=== PATIENT | male | born 1990 | race Caucasian/White ===

== ENCOUNTER → 2022-02-23 07:56 | Outpatient (BNVA) | payer MEDICAID, SELFPAY | PROVIDERS: Family Provider Family Medicine; Referring Provider Psychiatry & Neurology Neurology; Visit Provider Specialist | DX: G40.109 Localization-related (focal) (partial) symptomatic epilepsy and epileptic syndromes with simple partial seizures, not intractable, without status epilepticus (principal) | CPT/HCPCS: 95812; 95816 ==

== ENCOUNTER 2022-07-24 11:10 | Emergency (ER) | payer MEDICAID, SELFPAY ==
[2022-07-24 11:11] VITALS: BP 135/93; PULSE 88; RESP 22; TEMP 36.9; O2SAT 93; BMI 27.1
--- NOTE | 2022-07-24 11:14 | ED_ITS ---
HPI - Seizure General: Chief Complaint: Seizure Stated Complaint: SEIZURE Time Seen by Provider: 07/24/22 11:10 History of Present Illness: HPI Narrative: Presents with a seizure. Patient is alert and oriented at this time. Patient does not remember anything about his seizure. Patient is on seizure medicine for history of seizures. Patient states he takes his medicine as directed. Patient states this was his normal seizure were nothing different than any other seizure. Patient said his mother was there with him during this time. Patient has seen Dr. Arteaga neurology for this in the past. complaint: seizure Duration of episode: 3 Witnessed: Yes - by Other Seizure History: Yes Place: in a store Possible Precipitating Event: none Associated symptoms: Reports no associated symptoms; Deny chest pain, chills or fever(s) Treatments prior to arrival: none Review of Systems General: Reports: 10 or more systems reviewed and unremarkable except in HPI and below Const: Denies: fever(s) or chills Eyes: Denies: change in vision ENMT: Denies: throat pain Card: Denies: chest pain or edema Resp: Denies: dyspnea, productive cough or non-productive cough GI: Denies: abdominal pain, nausea or vomiting : Denies: flank pain or difficulty urinating Musc: Denies: neck pain or back pain Skin/Breast: Denies: rash or pruritus Neuro: Denies: headache(s), numbness in extremities or weakness in extremities Psych: Denies: anxiety or depression Physical Exam Const: COMMON NORMALS: no acute distress, average body habitus, patient oriented x3, no limitations, healthy appearing, alert and well nourished HENMT: COMMON NORMALS: normocephalic, atraumatic, hearing grossly normal bilaterally, external ears normal, Normal external nose present and moist oral mucous membranes HEAD & SCALP: normocephalic and atraumatic NOSE: Normal external nose present EXTERNAL EAR: Yes external ears normal Eye: COMMON NORMALS: Equal, round and reactive pupils present, EOMs intact bilaterally, conjunctivae normal and no scleral icterus CONJUNCTIVA: Yes conjunctivae normal PUPIL: Yes Equal, round and reactive pupils present Neck/C-Spine: COMMON NORMALS: full ROM, no lymphadenopathy, supple, no meningeal signs, no JVD and Thyroid normal THYROID: Thyroid normal Lymph: LYMPHATIC: no lymphadenopathy noted Chest: COMMONS NORMALS: normal inspection of the chest and normal palpation of entire chest wall Resp: COMMON NORMALS: normal respiratory effort, No retractions, No use of accessory muscles and clear to auscultation bilaterally AUSCULTATION: clear to auscultation bilaterally Cardio: COMMON NORMALS: no JVD, regular rate, regular rhythm, S1 normal heart sound present and S2 normal heart sound present RATE: regular rate RHYTHM: regular rhythm HEART SOUNDS: S1 normal heart sound present and S2 normal heart sound present GI: COMMON NORMALS: Normal to inspection, nondistended, normoactive bowel sounds present, Soft to palpation, non-tender, No hepatosplenomegaly present and no masses PALPATION: Yes Soft to palpation and Yes No hepatosplenomegaly present : COMMON NORMALS: Yes no CVA tenderness BLADDER/KIDNEY EXAM: Yes no CVA tenderness Back/Pelvis: COMMON NORMALS: no CVA tenderness Neuro: COMMON NORMALS: patient oriented x3, CN's II-XII intact bilaterally, moves all extremities, no focal motor deficits and no sensory deficits noted SENSORIUM/ORIENTATION: Yes alert MENINGEAL SIGNS: Yes no meningeal signs Psych: COMMON NORMALS: mental status grossly normal, Normal thought process present, cooperative, normal affect and speech normal SPEECH: Yes normal speech THOUGHT PROCESS: Normal thought process present Course Vital Signs: Vital signs: Vital Signs Temperature 98.5 F 07/24/22 11:11 Pulse Rate 88 07/24/22 11:11 Respiratory Rate 22 H 07/24/22 11:11 Blood Pressure 135/93 07/24/22 11:11 Pulse Oximetry 93 07/24/22 11:11 Oxygen Delivery Me thod Room Air 07/24/22 11:11 MDM - Seizure MDM Narrative Medical decision making narrative: Patient presents to the ER with complaints of seizure. Patient does have a history of having seizures in the past and is on medicine. Patient admits to taking his medicine. Patient has seen Dr. Arteaga in the past. Lab work was obtained which was essentially benign other than mildly elevated prolactin l evel. Patient will be discharged home and instructed to follow back up with Dr. Arteaga for possible medicine changes. Differential Diagnosis Seizure Differential Diagnosis: Likely generalized seizure and epileptic seizure; Unlikely intractable seizure disorder, new onset seizure or status epilepticus Medical Records Attestation: I reviewed the patient's medical records. Lab Data 07/24/22 11:29 07/24/22 11:29 Labs: Laboratory Results WBC 7.9 10^3/uL (4.0-10.0) 07/24/22 11:29 RBC 5.01 10^6/uL (4.1-5.3) 07/24/22 11:29 Hgb 15.4 g/dL (11.7-16.6) 07/24/22 11:29 Hct 44.6 % (42.0-52.0) 07/24/22 11:29 MCV 89.0 fl (80-94) 07/24/22 11:29 MCH 30.7 pg (28.0-34.0) 07/24/22 11:29 MCHC 34.5 g/dL (30.0-36.0) 07/24/22 11:29 RDW 12.6 % (12.1-15.1) 07/24/22 11:29 Plt Count 250 10^3/cmm (130-400) 07/24/22 11:29 MPV 9.5 fL (7.4-10.4) 07/24/22 11:29 Neut % (Auto) 79.3 % 07/24/22 11:29 Lymph % (Auto) 12.0 % 07/24/22 11:29 [place] % (Auto) 4.5 % 07/24/22 11:29 Eos % (Auto) 2.8 % 07/24/22 11:29 Baso % (Auto) 0.6 % 07/24/22 11:29 Neut # (Auto) 6.28 10^3/uL (1.8-7.7) 07/24/22 11:29 Lymph # (Auto) 1.0 10^3/uL (0.8-4.8) 07/24/22 11:29 [place] # (Auto) 0.4 10^3/uL (0.2-0.9) 07/24/22 11:29 Eos # (Auto) 0.2 10^3/uL (0.0-0.8) 07/24/22 11:29 Baso # (Auto) 0.1 10^3/uL (0.0-0.1) 07/24/22 11:29 Nucleated RBC % (auto) 0 % 07/24/22 11:29 Nucleated RBCs # 0.0 /100WBC 07/24/22 11:29 Sodium 136 mmol/L (136-145) 07/24/22 11:29 Potassium 3.6 mmol/L (3.5-5.1) 07/24/22 11:29 Chloride 100 mmol/L (98-107) 07/24/22 11:29 Carbon Dioxide 24 mmol/L (22-29) 07/24/22 11:29 Anion Gap 15.6 (5-19) 07/24/22 11:29 BUN 6 mg/dL (6-20) 07/24/22 11:29 Creatinine 1.1 mg/dL (0.7-1.2) 07/24/22 11:29 GFR Calculation 77.1 mL/min (90-130) L 07/24/22 11:29 Glucose 118 mg/dL (65-115) H 07/24/22 11:29 Calculated Osmolality 281 mOsm/kg (285-295) L 07/24/22 11:29 Calcium 9.3 mg/dL (8.5-10.5) 07/24/22 11:29 Total Bilirubin 0.3 mg/dL (0.15-1.2) 07/24/22 11:29 AST 21 U/L (0-40) 07/24/22 11:29 ALT 22 U/L (0-41) 07/24/22 11:29 Alkaline Phosphatase 88 U/L (40-130) 07/24/22 11:29 Total Protein 7.3 g/dL (6.6-8.7) 07/24/22 11:29 Albumin 4.3 g/dL (3.5-5.2) 07/24/22 11:29 Globulin 3.0 g/dL (1.3-4.6) 07/24/22 11:29 Prolactin 24.99 ng/mL (4.0-15.2) H 07/24/22 11:29 Urine Color Light yellow (Yellow) 07/24/22 12:32 Urine Appearance Clear (CLEAR) 07/24/22 12:32 Urine pH 8 (5-7) H 07/24/22 12:32 Ur Specific [place] 1.020 (1.005-1.030) 07/24/22 12:32 Urine Protein Neg (Negative) 07/24/22 12:32 Urine Glucose (UA) Norm (Normal) 07/24/22 12:32 Urine Ketones Negative (Negative) 07/24/22 12:32 Urine Blood Neg (Negative) 07/24/22 12:32 Urine Nitrate Negative (Negative) 07/24/22 12:32 Urine Bilirubin Neg (Negative) 07/24/22 12:32 Prot Sulfosalicylic Acd Negative (Negative) 07/24/22 12:32 Urine Urobilinogen Norm mg/dL (Negative) 07/24/22 12:32 Ur Leukocyte Esterase Negative (Negative) 07/24/22 12:32 Urine Opiates Screen Negative ng/mL (Negative) 07/24/22 12:32 Ur Barbiturates Screen Negative ng/mL (Negative) 07/24/22 12:32 Ur Phencyclidine Scrn Negative ng/mL (Negative) 07/24/22 12:32 Ur Amphetamines Screen Negative ng/mL (Negative) 07/24/22 12:32 U Benzodiazepines Scrn Negative ng/mL (Negative) 07/24/22 12:32 Urine Cocaine Screen Negative ng/mL (Negative) 07/24/22 12:32 U Marijuana (THC) Screen Negative ng/mL (Negative) 07/24/22 12:32 EKG Data EKG 1: Attestation: I personally reviewed and interpreted this EKG as follows: EKG interpretation date: 07/24/22 EKG interpretation time: 11:31 Prior EKG tracings: not available for review Interpretation: EKG showed normal sinus rhythm with ventricular rate of 86 bpm, WI interval 147, QRS duration of 96, QTc of 408, no ST-T wave changes Discharge Plan Discharge Patient Disposition: Home Clinical Impression: Epileptic seizure Qualifiers: Epilepsy type: unspecified Intractability: not intractable Status epilepticus: without status epilepticus Qualified Code(s): G40.909 - Epilepsy, unspecified, not intractable, without status epilepticus Condition: Stable Prescriptions: No Action citalopram 20 mg tablet 20 mg PO DAILY lamotrigine 100 mg tablet 300 mg PO BID topiramate 50 mg tablet 175 mg PO BID Discharge Orders: Discharge ED (Routine); Ordered 07/24/22 Ordered By: Thom Robles Patient Instructions: Epilepsy (ED) Activity Restrictions/Additional Instructions: Call Dr. Arteaga's office and schedule an appointment to follow-up with her in the next 1 to 2 weeks. Coding Level of Care Code ED Furn[employer] for Hilario Jiménez
--- NOTE | 2022-07-24 11:19 | ECG_ITS ---
[facility] Test Date: 2022-07-24 Pat Name: Caesar Hyatt Department: Room: Gender: Male Stock Layer: : 1990 Requested By: Thom Robles Order Number: [id number] Romi MD: Imelda Ledesma M.D. Measurements Intervals [place] Rate: 86 P: 34 [place]: 147 QRS: 21 QRSD: 96 T: 19 QT: 365 QTc: 438 Interpretive Statements SINUS RHYTHM Compared to ECG 09/27/2017 12:43:16 No significant changes Electronically Signed On 07-25-2022 7:03:00 CDT by Imelda Ledesma M.D. [email or web address] [email or web address] [email or web address] community hospitaleParachuteselect medical specialty hospital [id number]
[2022-07-24] MEDS: ondansetron 2 mg/ML SDV 2 mL 4 MG IVP (11:24)
[2022-07-24] MEDS: sodium chloride 0.9% 1,000 ML 999 ML IV (11:25)
[2022-07-24 11:36] LABS: Basophils # 0.1 10^3/uL (0.0-0.1); Basophils % 0.6 %; Eosinophils # 0.2 10^3/uL (0.0-0.8); Eosinophils % 2.8 %; Hematocrit 44.6 % (42.0-52.0); Hemoglobin 15.4 g/dL (11.7-16.6); Mean Corpuscular HGB Conc 34.5 g/dL (30.0-36.0); Mean Corpuscular Hemoglobin 30.7 pg (28.0-34.0); Mean Platelet Volume 9.5 fL (7.4-10.4); Monocytes # 0.4 10^3/uL (0.2-0.9); Monocytes % 4.5 %; Neutrophils # 6.28 10^3/uL (1.8-7.7); Neutrophils % 79.3 %; Nucleated Red Blood Cells % 0 %; Platelet Count 250 10^3/cmm (130-400); Red Blood Count 5.01 10^6/uL (4.1-5.3); Red Cell Distribution Width 12.6 % (12.1-15.1); White Blood Count 7.9 10^3/uL (4.0-10.0)
[2022-07-24 12:50] LABS: Alanine Aminotransferase 22 U/L (0-41); Albumin Level 4.3 g/dL (3.5-5.2); Alkaline Phosphatase 88 U/L (40-130); Anion Gap 15.6 (5-19); Aspartate Amino Transferase 21 U/L (0-40); Blood Urea Nitrogen 6 mg/dL (6-20); Calcium 9.3 mg/dL (8.5-10.5); Carbon Dioxide 24 mmol/L (22-29); Chloride 100 mmol/L (98-107); Glomerular Filtration Rate 77.1 mL/min (90-130); Glucose 118 mg/dL (65-115); Osmolality Calculated 281 mOsm/kg (285-295); Potassium 3.6 mmol/L (3.5-5.1); Sodium 136 mmol/L (136-145); Total Bilirubin 0.3 mg/dL (0.15-1.2); Total Protein 7.3 g/dL (6.6-8.7)
[2022-07-24 13:21] LABS: Prolactin 24.99 ng/mL (4.0-15.2)
[2022-07-24 13:27] VITALS: BP 123/85; PULSE 66; RESP 15; O2SAT 95
[2022-07-24 13:30] VITALS: BP 123/85; PULSE 79; RESP 18; O2SAT 95
[2022-07-24 13:39] LABS: Add Urine Microscopic? NO; Charge for UA Resulting for Rev
[2022-07-24 14:00] VITALS: BP 125/69; PULSE 80; RESP 19; O2SAT 93
[2022-07-24 14:15] LABS: Amphetamines Screen Urine Negative (Negative); Barbiturates Screen Urine Negative (Negative); Benzodiazepines Screen Urine Negative (Negative); Cocaine Screen Urine Negative (Negative); Opiate Screen Urine Negative (Negative); PCP Screen Urine Negative (Negative); THC Screen Urine Negative (Negative)
[2022-07-24 14:27] LABS: Blood Urine Neg (Negative); Glucose Urine UA Norm (Normal); Ketones Urine Negative (Negative); Nitrate Urine Negative (Negative); Protein Urine Neg (Negative); Urine Appearance Clear (CLEAR); Urine Color Light yellow (Yellow); pH Urine 8 (5-7)
[2022-07-24 14:28] LABS: Bilirubin Urine Neg (Negative); Leukocyte Esterase Urine Negative (Negative); Sulfosalicylic Acid Urine Negative (Negative); Urobilinogen Urine Norm (Negative)
[2022-07-24 14:30] VITALS: BP 125/75; PULSE 76; RESP 16; O2SAT 98
== END 2022-07-24 15:08 | disposition home or self-care (01) ==
PROVIDERS: Emergency Provider Emergency Medicine; PCP Psychiatry & Neurology Neurology
DX: G40.909 Epilepsy, unspecified, not intractable, without status epilepticus (principal)
CPT/HCPCS: 80053; 80306; 81003; 84146; 85025; 93005; 96374; 99284; J2405; J7030

== ENCOUNTER 2024-11-11 18:57 | Emergency (ER) | payer MEDICAID, SELFPAY ==
--- NOTE | 2024-11-11 19:01 | CTR_ITS ---
PROCEDURE INFORMATION: Exam: CT Head Without Contrast Exam date and time: 11/11/2024 7:15 PM Age: 34 years old Clinical indication: Other: Seizure TECHNIQUE: Imaging protocol: Computed tomography of the head without contrast. Radiation optimization: All CT scans at this facility use at least one of these dose optimization techniques: automated exposure control; mA and/or kV adjustment per patient size (includes targeted exams where dose is matched to clinical indication); or iterative reconstruction. COMPARISON: No relevant prior studies available. RADIATION DOSE METRICS: Total DLP (mGy-cm): 1124.68 FINDINGS: Brain: Prominent abnormal/remote encephalomalacic changes are noted to involve left frontal lobe/cortex. Encephalomalacia changes also noted to involve the insular cortex lentiform nucleus. Compensatory enlargement of the left lateral ventricle is also noted. Beam hardening artifact obscures resolution through the posterior fossa structures. No hemorrhage. No mass effect. Cerebral ventricles: See above. Ventricular caliber and configuration is otherwise relatively unremarkable proportion degree of widening sulci, sylvian fissures and basilar cisterns. Paranasal sinuses: Visualized sinuses are unremarkable. No fluid levels. Mastoid air cells: Visualized mastoid air cells are well aerated. Bones: Unremarkable. No acute fracture. Soft tissues: Incidentally noted appears to be ceruminous plugging of the right external auditory canal. CT/CT head wo con* [id number] IMPRESSION: 1. No acute intracranial head CT findings identified. 2. Remote/prominent left cerebral encephalomalacia warranting further historical clinical correlation. 3. Ceruminous plugging of the right external auditory canal/EAC.
--- NOTE | 2024-11-11 19:01 | W.ED.SEIZURE ---
HPI - Seizure General: Chief Complaint: Seizure Stated Complaint: Seizure Time Seen by Provider: 11/11/24 18:59 Source: patient and EMS Mode of arrival: EMS Limitations: no limitations History of Present Illness: HPI Narrative: 34-year-old male has a history of seizures states he had a seizure just prior to arrival and did hit his head when he seized patient is now awake and alert unsure how long the seizure lasted he states he has been taking his seizure meds he denies any recent illness denies headache. Seizure History: Yes Associated symptoms: Deny chest pain, chills or fever(s) Related Data Home Medications ?Medication ?Instructions ?Recorded ?Confirmed citalopram 20 mg tablet 20 mg PO DAILY 07/24/22 07/24/22 lamotrigine 100 mg tablet 300 mg PO BID 07/24/22 07/24/22 topiramate 50 mg tablet 175 mg PO BID 07/24/22 07/24/22 Allergies Allergy/AdvReac Type Severity Reaction Status Date / Time No Known Allergies Allergy Verified 07/24/22 11:20 Review of Systems Const: Denies: fever(s), chills, body aches or change in appetite Eyes: Denies: blurry vision or eye discomfort ENMT: Denies: throat pain or dental pain Card: Denies: chest pain Resp: Denies: dyspnea GI: Denies: abdominal pain, nausea, vomiting or diarrhea Musc: Denies: neck pain or back pain Skin/Breast: Denies: rash Neuro: Reports: seizure-like activity; Denies: headache(s) Physical Exam Const: COMMON NORMALS: no acute distress, patient oriented x3 and healthy appearing HENMT: COMMON NORMALS: normocephalic and atraumatic HEAD & SCALP: normocephalic and atraumatic OTHER: small abrasion to scalp Neck/C-Spine: COMMON NORMALS: full ROM and supple Chest: COMMONS NORMALS: normal inspection of the chest Resp: COMMON NORMALS: normal respiratory effort, No retractions, No use of accessory muscles and clear to auscultation bilaterally AUSCULTATION: clear to auscultation bilaterally Cardio: COMMON NORMALS: regular rate, regular rhythm and No murmurs present (Cardio) RATE: regular rate RHYTHM: regular rhythm GI: COMMON NORMALS: Normal to inspection, nondistended, normoactive bowel sounds present, Soft to palpation, non-tender and no masses PALPATION: Yes Soft to palpation Extremity: COMMON NORMALS: normal to inspection and full ROM Neuro: COMMON NORMALS: patient oriented x3, moves all extremities and no focal motor deficits Psych: COMMON NORMALS: mental status grossly normal, Normal thought process present and cooperative THOUGHT PROCESS: Normal thought process present Skin: COMMON NORMALS: no rashes or lesions noted and no wounds GENERAL SKIN EXAM: no rashes or lesions noted Course Vital Signs: Vital signs: Vital Signs Temperature 99.1 F 11/11/24 19:09 Pulse Rate 112 H 11/11/24 19:09 Respiratory Rate 20 H 11/11/24 19:09 Blood Pressure 134/79 11/11/24 19:09 Pulse Oximetry 91 11/11/24 19:09 Oxygen Delivery Me thod Room Air 11/11/24 19:09 MDM - Seizure MDM Narrative Medical decision making narrative: Patient presents after seizure he does have a history of seizure disorder head CT showed no acute findings electrolytes were normal did have an anion gap likely due to his seizure. He has been well-appearing here seizure-free he is to follow-up with his neurologist continue to take his meds return if worsening. Lab Data 11/11/24 19:00 Labs: Radiology Impressions Head CT 11/11/24 19:01 IMPRESSION: 1. No acute intracranial head CT findings identified. 2. Remote/prominent left cerebral encephalomalacia warranting further historical clinical correlation. 3. Ceruminous plugging of the right external auditory canal/EAC. Laboratory Results Sodium 144 mmol/L (136-145) 11/11/24 19:00 Potassium 3.3 mmol/L (3.5-5.1) L 11/11/24 19:00 Chloride 101 mmol/L (98-107) 11/11/24 19:00 Carbon Dioxide 11 mmol/L (22-29) L 11/11/24 19:00 Anion Gap 35.3 (5-19) H 11/11/24 19:00 BUN 9 mg/dL (6-20) 11/11/24 19:00 Creatinine 1.2 mg/dL (0.7-1.2) 11/11/24 19:00 GFR Calculation 68.9 mL/min (90-130) L 11/11/24 19:00 Glucose 164 mg/dL (65-115) H 11/11/24 19:00 Calculated Osmolality 300 mOsm/kg (285-295) H 11/11/24 19:00 Calcium 9.7 mg/dL (8.5-10.5) 11/11/24 19:00 Total Bilirubin 0.6 mg/dL (0.15-1.2) 11/11/24 19:00 AST 24 U/L (0-40) 11/11/24 19:00 ALT 26 U/L (0-41) 11/11/24 19:00 Alkaline Phosphatase 113 U/L (40-130) 11/11/24 19:00 Total Protein 8.7 g/dL (6.6-8.7) 11/11/24 19:00 Albumin 5.2 g/dL (3.5-5.2) 11/11/24 19:00 Globulin 3.5 g/dL (1.3-4.6) 11/11/24 19:00 All radiology interpretation(s) finalized by discharge Discharge Plan Discharge Patient Disposition: Home Clinical Impression: Seizure Condition: Stable Prescriptions: No Action citalopram 20 mg tablet 20 mg PO DAILY lamotrigine 100 mg tablet 300 mg PO BID topiramate 50 mg tablet 175 mg PO BID Discharge Orders: Discharge ED (Routine); Ordered 11/11/24 Ordered By: Shade Casper Referrals: Aristides Trevino MD [Primary Care Provider, Neurology] Discharge Diet: Advance as tolerated Discharge Activity: Resume usual activity Patient Instructions: Seizures Print Language: Frisian Coding Level of Care Code ED [employer] for Hilario Jiménez
[2024-11-11 19:09] VITALS: BP 134/79; PULSE 112; RESP 20; TEMP 37.3; O2SAT 91; BMI 31.6
[2024-11-11 19:52] LABS: Alanine Aminotransferase 26 U/L (0-41); Albumin Level 5.2 g/dL (3.5-5.2); Alkaline Phosphatase 113 U/L (40-130); Blood Urea Nitrogen 9 mg/dL (6-20); Calcium 9.7 mg/dL (8.5-10.5); Carbon Dioxide 11 mmol/L (22-29); Chloride 101 mmol/L (98-107); Creatinine Clr Calc Pharmacy 111.2456; Globulin 3.5 g/dL (1.3-4.6); Glucose 164 mg/dL (65-115); Osmolality Calculated 300 mOsm/kg (285-295); Sodium 144 mmol/L (136-145); Total Protein 8.7 g/dL (6.6-8.7)
[2024-11-11 19:55] LABS: Anion Gap 35.3 (5-19); Aspartate Amino Transferase 24 U/L (0-40); Potassium 3.3 mmol/L (3.5-5.1)
[2024-11-11 20:06] VITALS: BP 119/82; PULSE 101; RESP 18; O2SAT 93
== END 2024-11-11 20:07 | disposition home or self-care (01) ==
PROVIDERS: Emergency Provider Emergency Medicine; PCP Psychiatry & Neurology Neurology
DX: R56.9 Unspecified convulsions (principal)
CPT/HCPCS: 70450; 80053; 99284

== ENCOUNTER 2024-12-07 03:11 | Emergency (ER) | payer MEDICAID, SELFPAY ==
--- OUTSIDE RECORDS SUMMARY | 2019-04-23 08:49 | XMS_ITS | Continuity of Care Document ---
Author Organization [facility] Address [id number] [address] Phone Care Team Providers Care Learning Support Assistant Name Role Phone Gandhi summer Unavailable Unavailabl e Allergies, Adverse Reactions, Alerts Substance Reaction Status Criticality No Known Allergies Active No Inform ation Medications Medication Instructions Dosage Effective Dates (start - stop) Status Comments Percocet 7.5 mg-325 mg Tab take 1 tablet by ORAL route every 6 hours as needed 1.00 tablet - Active chlorhexidine gluconate 0.12 % Mouthwash place 15 milliliter by MUCOUS MEMBRANE route 2 times every day in the mouth(after meals), swish in mouth for 30 seconds then spit out 15.00 milliliter - Active LAMICTAL (unknown strength) Not Available - Active TOPAMAX (unknown strength) Not Available - Active PreviDent 5000 Plus 1.1 % Cream [place] teeth once a day for 2 minutes. Do not swollow. - Active Procedures Procedure Date Vision [facility] frames purchases Spherocylindr 4.00d/12-2.00d Spherocylindr 4.00d/12-2.00d FITTING OF SPECTACLES REFRACTION Eye Exam New Patient Post Op No Charge EDR Approval Note Surgical Removal Of Erupted Tooth Requir ing Elevat Surgical Removal Of Erupted Tooth Requir ing Elevat Extraction, Erupted Tooth Or Exposed Danica t (Elevati Extraction, Erupted Tooth Or Exposed Danica t (Elevati Extraction, Erupted Tooth Or Exposed Danica t (Elev Extraction, Erupted Tooth Or Exposed Danica t (Elev Extraction, Erupted Tooth Or Exposed Danica t (Elev Extraction, Erupted Tooth Or Exposed Danica t (Elev Extraction, Erupted Tooth Or Exposed Danica t (Elev Extraction, Erupted Tooth Or Exposed Danica t (Elev Extraction, Erupted Tooth Or Exposed Danica t (Elev Extraction, Erupted Tooth Or Exposed Danica t (Elev Alveoloplasty In Conjunction With Extractions Fo Alveoloplasty In Conjunction With Extractions Fo Extraction, Erupted Tooth Or Exposed Danica t (Elevati Extraction, Erupted Tooth Or Exposed Danica t (Elev Intravenous Conscious Sedati on/Analgesia First 3 Intravenous Conscious Sedati on/Analgesia Each Ad Intravenous Conscious Sedati on/Analgesia Each Ad Limited Oral Evaluation Problem Focused Amalgam Two Surfaces, Primary Or Permanent Amalgam Three Surfaces, Primary Or Permanent EDR Approval Note Resin-Based Composite Three Surfaces, Anterior Resin-Based Composite Two Surfaces, Anterior EDR Approval Note Resin-Based Composite Three Surfaces, Anterior Resin-Based Composite Two Surfaces, Anterior Resin-Based Composite Two Surfaces, Anterior EDR Approval Note No Work Today/No Charge EDR Approval Note Full Mouth Debridement To Enable Compreh ensive Rose Prophylaxis Adult Topical Application Of Fluoride (Prophyl axis Not I Advance Directives Directive Yes / No Effective Date File Name No Information Encounters Encounter Description Practice Location Reason(s) For Visit Diagnoses Date Provider Providers Copied on Encounter [facility], [id number]- [facility], [place], [place], [id number], [place] tel:[phone] Vision F1 Encounter for fit/adjst of spectacles and contact lenses 0 Oksana Martinez. [address], [place], [id number], [place]. tel:[phone] Referring Provider: Michelle Gandhi , [address] [facility], [place], [address] . tel:[phone] [facility], [id number] [place], [id number], [place] tel:[phone] Vision F1 blurry vision (chief complaint) Myopia, bilateralRegular astigmatism, bilateral 0 No Information [facility], [id number] [place], [id number], [place] tel:[phone] [facility] No Information 1 No Information [facility], [id number], [id number], [place] tel:[phone] [facility] No Information 0 Jey Earl. [address] [place], [address], [place]. tel:[phone] Referring Provider: Rajat Ozuna, [address] [place], [address]. tel:[phone] [facility], [id number], [place], [id number], [place] tel:[phone] [facility] No Information 0 Jey Earl. [address] [place], [address], [place]. tel:[phone] Referring Provider: Rajat Ozuna, [address] [place], [address]. tel:[phone] [facility], [id number]- [facility], [place], [place], [id number], [place] tel:[phone] [facility] No Information 9-201 0 No Information [facility], [id number]- [facility], [place], [place], [address], [place] tel:[phone] [facility] No Information 8201 0 No Information [facility], [id number]- [facility], [place], [place], [id number], [place] tel:[phone] [facility] No Information 4201 0 No Information [facility], [id number]- [facility], [place], [place], [id number], [place] tel:[phone] [facility] No Information Nov- 0201 0 No Information [facility], [id number]- [facility], [place], [place], [id number], [place] tel:[phone] [facility] No Information 6 0 Patrice Mike. [address] [place], [address], [place]. tel:[phone] Referring Provider: Cee Melchor, [address] [place], [address]. tel:[phone] Family History Family Member Type Diagnosis Age At Onset No Information Payers Payer name Insurance type Covered republican ID Paulina turcios(s) [employer] [place] Medicaid [id number] Social History Type Description Quantity Date Captured Comments Sex Male Smoking Status No Information Chief Complaint And Reason For Visit No Information Reason For Referral Reason For Referral No Information History Of Present Illness Encounter Date Complaint History Of Prese nt Illness blurry vision Pt denies any me dical conditions, Pt states last eye exam was 2 years ago. Glasses are from that exam Pt feels like he can see out of the glasses they are just old. Pt has more trouble with distance than up close. no headaches. Functional Status Date Functional Assessmen t No Information Instructions Date Instruction Additional Infor idris Impression/Plan Assessments Type Assessment Date No Information Patient Care Teams Name Effective Dates (start - stop) Status Members No Information
[2024-12-07 03:22] VITALS: BP 145/93; PULSE 45; RESP 18; TEMP 36.8; O2SAT 98; BMI 31.6
--- NOTE | 2024-12-07 03:43 | W.ED.ABDPA2 ---
HPI - Abdominal Pain General: Chief Complaint: Abdominal Pain Stated Complaint: Stomach hurting Time Seen by Provider: 12/07/24 03:39 History of Present Illness: Patient is a 34-year-old male who presents with acute onset of right-sided abdominal pain that began approximately 2 hours prior to arrival. The pain is localized to the right side of the abdomen with no radiation. Patient reports that the pain started suddenly while he was watching television. He denies any precipitating factors, trauma, or unusual activities. The pain has remained constant since onset and has not improved. Patient denies nausea, vomiting, or diarrhea. He also denies any fever, chills, or other systemic symptoms. No similar episodes in the past. Patient has no established primary care physician. Related Data Home Medications ?Medication ?Instructions ?Recorded ?Confirmed citalopram 20 mg tablet 20 mg PO DAILY 07/24/22 07/24/22 lamotrigine 100 mg tablet 300 mg PO BID 07/24/22 07/24/22 topiramate 50 mg tablet 175 mg PO BID 07/24/22 07/24/22 Previous Rx's ?Medication ?Instructions ?Recorded ketorolac 10 mg tablet 10 mg PO TID PRN pain #10 tabs 12/07/24 ondansetron 4 mg disintegrating 4 mg PO Q6H PRN nausea and 12/07/24 tablet vomiting #14 tabs Allergies Allergy/AdvReac Type Severity Reaction Status Date / Time No Known Allergies Allergy Verified 12/07/24 03:27 Review of Systems Narrative: Constitutional: Denies fever, chills Respiratory: Denies cough, sneezing Gastrointestinal: Reports right-sided abdominal pain. Denies nausea, vomiting, diarrhea All other systems: Not documented or negative Physical Exam Const: COMMON NORMALS: no acute distress GENERAL APPEARANCE: cooperative; not ill appearing and not frail appearing HENMT: COMMON NORMALS: normocephalic, atraumatic and Normal external nose present HEAD & SCALP: normocephalic and atraumatic FACE & SINUS: normal facial exam and face symmetric NOSE: Normal external nose present Eye: COMMON NORMALS: Equal, round and reactive pupils present and EOMs intact bilaterally PUPIL: Yes Equal, round and reactive pupils present Neck/C-Spine: GENERAL: Yes trachea midline Chest: CHEST: Yes Symmetrical chest wall rise Resp: COMMON NORMALS: normal respiratory effort, No retractions, No use of accessory muscles and clear to auscultation bilaterally AUSCULTATION: clear to auscultation bilaterally Cardio: COMMON NORMALS: regular rate and regular rhythm RATE: regular rate RHYTHM: regular rhythm GI: COMMON NORMALS: Normal to inspection, nondistended, normoactive bowel sounds present PALPATION: Yes Tenderness to palpation present (GI) (Epigastric) Details: RUQ and Yes Guarding due to palpation present (GI) Extremity: COMMON NORMALS: no pedal edema Neuro: [place] COMA SCALE: document GCS findings [place] coma scale eye opening: Spontaneous [place] coma scale verbal response: Orientated [place] coma scale motor response: Obey commands [place] coma scale total score: 15 SENSORY EXAM: Yes extremities (intact) Psych: COMMON NORMALS: speech normal SPEECH: Yes normal speech Skin: COMMON NORMALS: no rashes or lesions noted GENERAL SKIN EXAM: no rashes or lesions noted Course Vital Signs: Vital signs: Vital Signs Temperature 98.2 F 12/07/24 03:22 Pulse Rate 59 L 12/07/24 04:57 Respiratory Rate 17 12/07/24 04:57 Blood Pressure 130/86 12/07/24 04:57 Pulse Oximetry 97 12/07/24 04:57 Oxygen Delivery Me thod Room Air 12/07/24 04:57 MDM - Abdominal Pain Medical Decision Making Patient is afebrile. Vitals are stable. CBC is normal. Creatinine is 1.3. Otherwise BMP not remarkable. CRP is 11.5. Liver enzymes are normal. Lipase is 24. Urinalysis is negative. Pain is improved. GI cocktail was ordered. With improvement in discomfort, nontoxic appearance, will allow discharge. Symptomatic treatment return for worsening or new symptoms. Lab Data 12/07/24 03:47 12/07/24 03:47 Labs/Radiology: Laboratory Results WBC 8.05 10^3/uL (3.29-11.43) 12/07/24 03:47 RBC 4.95 10^6/uL (3.85-5.65) 12/07/24 03:47 Hgb 15.20 g/dL (11.27-16.99) 12/07/24 03:47 Hct 43.0 % (37-53) 12/07/24 03:47 MCV 86.9 fl (82-101) 12/07/24 03:47 MCH 30.7 pg (27-33) 12/07/24 03:47 MCHC 35.3 g/dL (30-55) 12/07/24 03:47 RDW 12.9 % (12.1-15.1) 12/07/24 03:47 Plt Count 277 10^3/cmm (157-399) 12/07/24 03:47 MPV 10.0 fL (7.4-10.4) 12/07/24 03:47 Neut % (Auto) 80.1 % 12/07/24 03:47 Lymph % (Auto) 14.4 % 12/07/24 03:47 [place] % (Auto) 4.2 % 12/07/24 03:47 Eos % (Auto) 0.7 % 12/07/24 03:47 Baso % (Auto) 0.4 % 12/07/24 03:47 Neut # (Auto) 6.44 10^3/uL (1.8-7.7) 12/07/24 03:47 Lymph # (Auto) 1.2 10^3/uL (0.8-4.8) 12/07/24 03:47 [place] # (Auto) 0.3 10^3/uL (0.2-0.9) 12/07/24 03:47 Eos # (Auto) 0.1 10^3/uL (0.0-0.8) 12/07/24 03:47 Baso # (Auto) 0.0 10^3/uL (0.0-0.1) 12/07/24 03:47 Nucleated RBC % (auto) 0 % 12/07/24 03:47 Nucleated RBCs # 0.0 /100WBC 12/07/24 03:47 Sodium 142 mmol/L (136-145) 12/07/24 03:47 Potassium 3.5 mmol/L (3.5-5.1) 12/07/24 03:47 Chloride 108 mmol/L (98-107) H 12/07/24 03:47 Carbon Dioxide 22 mmol/L (22-29) 12/07/24 03:47 Anion Gap 15.5 (5-19) 12/07/24 03:47 BUN 12 mg/dL (6-20) 12/07/24 03:47 Creatinine 1.3 mg/dL (0.7-1.2) H 12/07/24 03:47 GFR Calculation 62.8 mL/min (90-130) L 12/07/24 03:47 Glucose 160 mg/dL (65-115) H 12/07/24 03:47 Calculated Osmolality 297 mOsm/kg (285-295) H 12/07/24 03:47 Calcium 9.3 mg/dL (8.5-10.5) 12/07/24 03:47 Total Bilirubin 0.4 mg/dL (0.15-1.2) 12/07/24 03:47 AST 17 U/L (0-40) 12/07/24 03:47 ALT 18 U/L (0-41) 12/07/24 03:47 Alkaline Phosphatase 100 U/L (40-130) 12/07/24 03:47 C-Reactive Protein 11.5 mg/L (0.0-4.9) H 12/07/24 03:47 Total Protein 7.4 g/dL (6.6-8.7) 12/07/24 03:47 Albumin 4.5 g/dL (3.5-5.2) 12/07/24 03:47 Globulin 2.9 g/dL (1.3-4.6) 12/07/24 03:47 Lipase 24 U/L (13-60) 12/07/24 03:47 Urine Color Yellow (Yellow) 12/07/24 03:48 Urine Appearance Turbid (CLEAR) A 12/07/24 03:48 Urine pH 7.0 (5-7) 12/07/24 03:48 Ur Specific [place] 1.017 (1.005-1.030) 12/07/24 03:48 Urine Protein Negative (Negative) 12/07/24 03:48 Urine Glucose (UA) Negative (Normal) 12/07/24 03:48 Urine Ketones Negative (Negative) 12/07/24 03:48 Urine Blood Negative (Negative) 12/07/24 03:48 Urine Nitrate Negative (Negative) 12/07/24 03:48 Urine Bilirubin Negative (Negative) 12/07/24 03:48 Urine Urobilinogen 1.0 mg/dL (Negative) 12/07/24 03:48 Ur Leukocyte Esterase Negative (Negative) 12/07/24 03:48 Urine RBC 0-2 /hpf (0-2) 12/07/24 03:48 Urine WBC 0-5 /hpf (0-5) 12/07/24 03:48 Ur Squamous Epith Cells 0-5 /hpf (0-5) 12/07/24 03:48 Amorphous Sediment Not Reportable 12/07/24 03:48 Urine Bacteria None seen /hpf (NONE) 12/07/24 03:48 Hyaline Casts 0-4 /lpf H 12/07/24 03:48 No radiology studies performed this visit Discharge Plan Discharge Patient Disposition: Home Clinical Impression: Abdominal pain Qualifiers: Abdominal location: right upper quadrant Qualified Code(s): R10.11 - Right upper quadrant pain Condition: Stable Prescriptions: New ketorolac 10 mg tablet 10 mg PO TID PRN (Reason: pain) Qty: 10 0RF ondansetron 4 mg tablet,disintegrating 4 mg PO Q6H PRN (Reason: nausea and vomiting) Qty: 14 0RF No Action citalopram 20 mg tablet 20 mg PO DAILY lamotrigine 100 mg tablet 300 mg PO BID topiramate 50 mg tablet 175 mg PO BID Discharge Orders: Discharge ED (Routine); Ordered 12/07/24 Ordered By: Duane Szymanski Referrals: Aristides Trevino MD [Primary Care Provider, Neurology] Patient Instructions: Abdominal Pain (ED), Opioid Safety, Pain Management, Patient Portal & Wendi Instructions Activity Restrictions/Additional Instructions: Follow a liquid diet for 24 hours. Use medication for any further symptoms. If pain and nausea are improved, you may increase diet as tolerated. Return for fever greater than 100 ?F, vomiting liquids or medications, worsening pain despite treatment, or other concerning symptoms. Follow-up with your doctor. Call tomorrow for an appointment. Print Language: Wolof Coding Level of Care Code ED Paper Colorer for Hilario Jiménez
[2024-12-07 03:54] LABS: Hematocrit 43.0 % (37-53); Hemoglobin 15.20 g/dL (11.27-16.99); Mean Corpuscular HGB Conc 35.3 g/dL (30-55); Mean Corpuscular Hemoglobin 30.7 pg (27-33); Mean Corpuscular Volume 86.9 fl (82-101); Nucleated Red Blood Cells % 0 %; Platelet Count 277 10^3/cmm (157-399); Red Blood Count 4.95 10^6/uL (3.85-5.65); White Blood Count 8.05 10^3/uL (3.29-11.43)
[2024-12-07] MEDS: ondansetron 2 mg/ML SDV 2 mL 4 MG IVP (04:06)
[2024-12-07] MEDS: morphine 4 mg/mL SDV 1 mL IVP (04:10)
[2024-12-07 04:13] LABS: Glucose Urine UA Negative (Normal); Nitrate Urine Negative (Negative); Specific Gravity, Urine 1.017 (1.005-1.030)
[2024-12-07 04:14] VITALS: BP 128/87; PULSE 45; RESP 18; O2SAT 96
[2024-12-07 04:18] LABS: Add Urine Microscopic? YES
[2024-12-07 04:23] LABS: Alanine Aminotransferase 18 U/L (0-41); Albumin Level 4.5 g/dL (3.5-5.2); Alkaline Phosphatase 100 U/L (40-130); Anion Gap 15.5 (5-19); Aspartate Amino Transferase 17 U/L (0-40); Blood Urea Nitrogen 12 mg/dL (6-20); Calcium 9.3 mg/dL (8.5-10.5); Carbon Dioxide 22 mmol/L (22-29); Chloride 108 mmol/L (98-107); Globulin 2.9 g/dL (1.3-4.6); Glucose 160 mg/dL (65-115); Lipase 24 U/L (13-60); Osmolality Calculated 297 mOsm/kg (285-295); Potassium 3.5 mmol/L (3.5-5.1); Sodium 142 mmol/L (136-145); Total Protein 7.4 g/dL (6.6-8.7)
[2024-12-07 04:28] LABS: Creatinine Clr Calc Pharmacy 102.6272
[2024-12-07] MEDS: lidocaine 2% viscous 15 ML, aluminum-mag hydrox-simethicon 30 ML, sucralfate oral liq 1 GM PO (04:54)
[2024-12-07 04:57] VITALS: BP 130/86; PULSE 59; RESP 17; O2SAT 97
[2024-12-07 05:22] VITALS: BP 127/85; PULSE 57; RESP 18; O2SAT 97
== END 2024-12-07 05:23 | disposition home or self-care (01) ==
PROVIDERS: Emergency Provider Emergency Medicine; PCP Psychiatry & Neurology Neurology
DX: R10.11 Right upper quadrant pain (principal)
CPT/HCPCS: 36415; 80053; 81001; 83690; 85025; 86140; 96374; 96375; 99284; J1885; J2270; J2405; J9999

== ENCOUNTER 2025-02-16 18:45 | Emergency (ER) | payer MEDICAID, SELFPAY ==
[2025-02-16 18:45] VITALS: BP 106/81; PULSE 100; RESP 18; TEMP 36.9; O2SAT 96; BMI 27.7
--- NOTE | 2025-02-16 18:47 | CTR_ITS ---
PROCEDURE INFORMATION: Exam: CT Head Without Contrast Exam date and time: 02/16/2025 7:05 PM Age: 34 years old Clinical indication: Injury or trauma; Injury details: Fall during seizure; Additional info: Head injury/seizure TECHNIQUE: Imaging protocol: Computed tomography of the head without contrast. Radiation optimization: All CT scans at this facility use at least one of these dose optimization techniques: automated exposure control; mA and/or kV adjustment per patient size (includes targeted exams where dose is matched to clinical indication); or iterative reconstruction. 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 Chronic leftward midline shift of approximately 3 mm, similar to prior exam. No acute hemorrhage, edema, or mass effect. Chiari 1 malformation is suggested with peg like cerebellar tonsils projecting approximately 5.5 mm below the foramen magnum. Cerebral ventricles: Mild ex vacuo dilatation of the left lateral ventricle. Paranasal sinuses: Single opacified right ethmoid air cell. The remaining visualized paranasal sinuses are clear Mastoid air cells: Visualized mastoid air cells are well aerated. Bones: Unremarkable. No acute fracture. Soft tissues: Unremarkable. CT/CT head wo con* [id number] IMPRESSION: 1. 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 2. 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 Recommend nonemergent follow-up MRI of the brain and cervical spine if not already assessed.
--- NOTE | 2025-02-16 18:48 | W.ED.SEIZURE ---
HPI - Seizure General: Chief Complaint: Seizure Stated Complaint: seizures Source: patient and EMS Mode of arrival: EMS Limitations: no limitations History of Present Illness: HPI Narrative: 34-year-old male has a history of seizures and is on Topamax and Lamictal for seizure states has been taken. States he had 1 just prior to arrival lasted 1 to 2 minutes did hit his right head on the ground does have a small abrasion. Patient is back to his baseline he denies any pain currently has had no recent illness denies any vomiting or diarrhea. Seizure History: Yes Related Data Home Medications ?Medication ?Instructions ?Recorded ?Confirmed citalopram 20 mg tablet 20 mg PO DAILY 07/24/22 07/24/22 lamotrigine 100 mg tablet 300 mg PO BID 07/24/22 07/24/22 topiramate 50 mg tablet 175 mg PO BID 07/24/22 07/24/22 Previous Rx's ?Medication ?Instructions ?Recorded ketorolac 10 mg tablet 10 mg PO TID PRN pain #10 tabs 12/07/24 ondansetron 4 mg disintegrating 4 mg PO Q6H PRN nausea and 12/07/24 tablet vomiting #14 tabs Allergies Allergy/AdvReac Type Severity Reaction Status Date / Time No Known Allergies Allergy Verified 12/07/24 03:27 Review of Systems Neuro: Reports: seizure-like activity Physical Exam Const: COMMON NORMALS: no acute distress, patient oriented x3 and healthy appearing HENMT: COMMON NORMALS: normocephalic HEAD & SCALP: normocephalic OTHER: abrasion to right forehead Eye: COMMON NORMALS: Equal, round and reactive pupils present and EOMs intact bilaterally PUPIL: Yes Equal, round and reactive pupils present Neck/C-Spine: COMMON NORMALS: full ROM and supple Chest: COMMONS NORMALS: normal inspection of the chest Resp: COMMON NORMALS: normal respiratory effort, No retractions, No use of accessory muscles and clear to auscultation bilaterally AUSCULTATION: clear to auscultation bilaterally Cardio: COMMON NORMALS: regular rate, regular rhythm and No murmurs present (Cardio) RATE: regular rate RHYTHM: regular rhythm Extremity: COMMON NORMALS: normal to inspection and full ROM Neuro: COMMON NORMALS: patient oriented x3, moves all extremities and no focal motor deficits Psych: COMMON NORMALS: mental status grossly normal, Normal thought process present and cooperative THOUGHT PROCESS: Normal thought process present Skin: COMMON NORMALS: no rashes or lesions noted and no wounds GENERAL SKIN EXAM: no rashes or lesions noted Course Vital Signs: Vital signs: Vital Signs Temperature 98.4 F 02/16/25 18:45 Pulse Rate 100 02/16/25 18:45 Respiratory Rate 18 02/16/25 18:45 Blood Pressure 106/81 02/16/25 18:45 Pulse Oximetry 96 02/16/25 18:45 Oxygen Delivery Me thod Room Air 02/16/25 18:45 MDM - Seizure MDM Narrative Medical decision making narrative: Patient presents here after seizure has a long history of seizures. He has been well-appearing here no seizure-like activity. He is back to his baseline. Did perform a head CT as he did hit his head which showed no acute abnormalities. Patient's vitals been stable he stable for discharge follow-up with PCP return if worsening. Lab Data Labs: Radiology Impressions Head CT 02/16/25 18:47 IMPRESSION: 1. 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 2. 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 Recommend nonemergent follow-up MRI of the brain and cervical spine if not already assessed. All radiology interpretation(s) finalized by discharge Discharge Plan Discharge Patient Disposition: Home Clinical Impression: Generalized seizure Condition: Stable Prescriptions: No Action citalopram 20 mg tablet 20 mg PO DAILY lamotrigine 100 mg tablet 300 mg PO BID topiramate 50 mg tablet 175 mg PO BID ketorolac 10 mg tablet 10 mg PO TID PRN (Reason: pain) Qty: 10 0RF ondansetron 4 mg tablet,disintegrating 4 mg PO Q6H PRN (Reason: nausea and vomiting) Qty: 14 0RF Discharge Orders: Discharge ED (Routine); Ordered 02/16/25 Ordered By: Shade Casper Referrals: Aristides Trevino MD [Primary Care Provider, Neurology] - 4-7 days Discharge Diet: Advance as tolerated Discharge Activity: Resume usual activity Patient Instructions: Generalized Tonic Clonic Seizures (ED) Print Language: Lithuanian Coding Level of Care Code ED Job Printer Apprentice for Hilario Jiménez
[2025-02-16] MEDS: LORazepam 2 mg/mL INJ 1 mL 1 MG IVP (18:53)
== END 2025-02-16 19:48 | disposition home or self-care (01) ==
PROVIDERS: Emergency Provider Emergency Medicine; PCP Psychiatry & Neurology Neurology
DX: R56.9 Unspecified convulsions (principal)
CPT/HCPCS: 70450; 96374; 99285; J2060